=== PATIENT | female | born 1935 | race Caucasian/White ===

== ENCOUNTER 2018-06-22 10:32 | Outpatient (CLI) | payer MEDICARE, BC ==
[2018-06-22 11:31] LABS: Estimated GFR-MDRD - POC Greater than 90
[2018-06-22] MEDS ORDERED: ISOVUE-370 76%-LOCM 1 ML ONE (11:55)
== END 2018-06-22 10:33 | disposition home or self-care (01) ==
LOC: BICCT 10:32
PROVIDERS: ATTEND Nurse Practitioner Family
DX: K92.89 Other specified diseases of the digestive system (principal); K80.20 Calculus of gallbladder without cholecystitis without obstruction; K57.30 Diverticulosis of large intestine without perforation or abscess without bleeding
CPT/HCPCS: 74160; 82565

== ENCOUNTER 2018-08-07 11:12 | Outpatient (CLI) | payer MEDICARE, BC ==
--- NOTE | 2018-08-07 13:06 | RAD ---
CHEST TWO VIEWS: HISTORY: Recent pneumonia. COMPARISON: 03/07/2017 FINDINGS: Atherosclerosis of the aorta. Slight elongation of the descending aorta. Heart size is upper normal . Pulmonary vessels are slightly prominent. Costophrenic angles are clear. Lungs are hyperinflated . Chronic changes are noted. No consolidation or mass. No pneumothorax or osseous abnormalities. IMPRESSION: 1. Atherosclerosis. 2. Hyperinflation. 3. Mildly prominently pulmonary vessels. Correlate for volume overload. POS: [facility]
== END 2018-08-07 11:13 | disposition home or self-care (01) ==
LOC: SCSRAD 11:12
PROVIDERS: ATTEND Nurse Practitioner Family
DX: J18.9 Pneumonia, unspecified organism (principal); I70.0 Atherosclerosis of aorta; R91.8 Other nonspecific abnormal finding of lung field
CPT/HCPCS: 71046

== ENCOUNTER 2019-05-06 11:18 | Outpatient (CLI) | payer MEDICARE, BC ==
--- NOTE | 2019-05-06 12:02 | RAD ---
LUMBAR SPINE 2 VIEWS: Date: 05/06/19 HISTORY: M54.42, acute left-sided low back pain with left-sided sciatica. Left hip and leg pain. FINDINGS: Severe dextroscoliosis of the lumbar vertebral column. Extensive multilevel disc osteophytosis. Evide nce for generalized facet arthrosis. Diffuse bony demineralization. IMPRESSION: Severe dextroscoliosis. Bony demineralization. Severe spondylosis. POS: [facility]
== END 2019-05-06 11:19 | disposition home or self-care (01) ==
LOC: SCSRAD 11:18
PROVIDERS: ATTEND Nurse Practitioner Family
DX: M54.42 Lumbago with sciatica, left side (principal); M41.9 Scoliosis, unspecified; M47.816 Spondylosis without myelopathy or radiculopathy, lumbar region
CPT/HCPCS: 72100

== ENCOUNTER 2020-05-12 09:37 | Outpatient (CLI) | payer MEDICARE, BC ==
--- NOTE | 2020-05-12 10:22 | BD ---
BONE DENSITOMETRY USING DEXA: Date: 05/12/2020 HISTORY: Postmenopausal screening for osteoporosis. FINDINGS: Lumbar Spine: BMD (g/cm2) L1 1.202 T-Score: 1.9 Z-Score: 4.4 L2 1.024 T-Score: 0.0 Z-Score: 2.7 L3 1.130 T-Score: 0.4 Z-Score: 3.3 L4 1.078 T-Score: 0.2 Z-Score: 3.1 L1-L4 1.111 T-Score: 0.6 Z-Score: 3.4 Femoral Neck: 0.586 T-Score: -2.4 Z-Score: 0.1 Total Femur: 0.796 T-Score: -1.2 Z-Score: 1.0 IMPRESSION: Osteopenia. POS: [facility]
== END 2020-05-12 09:38 | disposition home or self-care (01) ==
LOC: BICMAMMO 09:37
PROVIDERS: ATTEND Internal Medicine
DX: M81.0 Age-related osteoporosis without current pathological fracture (principal); M85.859 Other specified disorders of bone density and structure, unspecified thigh
CPT/HCPCS: 77080

== ENCOUNTER 2020-06-05 12:13 | Emergency (ER) | payer MEDICARE, BC, OTHER ==
[~2020-06-05 12:13] MED LIST: Iopamidol-370 76% 500 ML 1 ML ONE
[2020-06-05 13:37] LABS: Hemoglobin 13.5 g/dL (12.0-16.0); Mean Corpuscular HGB CONC 32.6 g/dL (32.0-36.0); Mean Corpuscular Hemoglobin 31.3 pg (27.0-31.0); Mean Corpuscular Volume 96.1 fL (78.0-98.0); Mean Platelet Volume 8.3 fL (7.4-10.4); Platelet Count 147 thou/uL (130-400); RBC Distribution Width 12.5 % (11.5-14.5); White Blood Cell (WBC) Count 14.8 thou/uL (4.8-10.8)
[2020-06-05 14:15] LABS: Bacteria/HPF None Seen HPF (None Seen); Bilirubin Negative (Negative); Blood, Urine Negative (Negative); Clarity Clear (Clear); Glucose, Urine (Dipstick) Normal (Negative); Ketone, Urine Negative (Negative); Leukocyte Negative Leu/uL (Negative); Nitrite Negative (Negative); Protein, Urine (Dipstick) 30 mg/dL (Neg-Trace); RBC/HPF 0-3 HPF (0-3); Specific Gravity, Urine 1.024 (1.002-1.036); Squamous Epithelial 0-3 HPF (0-3)
[2020-06-05 14:33] LABS: Band 25 % (5-11); Lymphocytes 6 % (21-51); MDiff Complete? YES; Monocytes 2 % (0-10); Neutrophil 67 % (42-75); Platelet Morphology Comment Appears Adequate; RBC Morphology Normal
[2020-06-05 14:46] LABS: ALT (SGPT) 94 U/L (8-55); AST (SGOT) 86 U/L (5-34); Albumin 3.8 g/dL (3.4-4.8); Alkaline Phosphatase 95 U/L (40-110); Anion Gap 13 mmol/L (10-20); BUN (Urea Nitrogen) 18 mg/dL (9.8-20.1); Bilirubin, Total 0.7 mg/dL (0.2-1.2); Calc. Creatinine Clearance 0 mL/min (70-130); Calcium 8.7 mg/dL (7.8-10.44); Carbon Dioxide 27 mmol/L (23-31); Chloride 100 mmol/L (98-107); Estimated GFR-MDRD 70; Globulin 3.3 g/dL (2.4-3.5); Glucose 135 mg/dL (83-110); Lipase 14 U/L (8-78); Protein, Total 7.1 g/dL (6.0-8.3); Sodium 136 mmol/L (136-145)
--- NOTE | 2020-06-05 16:20 | CT ---
ABDOMEN AND PELVIC CT SCAN WITH IV CONTRAST: History: Left upper quadrant pain. Cough, sore throat, low grade fever. Comparison: Abdomen CT scan, 06-22-2018 FINDINGS: Minimal bilateral posterior pleural thickening and minimal pleural based parenchymal changes having m ore of a chronic appearance. There is evidence for minimal hepatosplenomegaly, both of which show an increase in size from the prior exam. Multiple gallstones within the gallbladder without wall thicken ing or pericholecystic fluid or fat stranding. No common duct or intrahepatic ductal dilatation. 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 There is no pancreatic ductal dilatation. This opacity appears to be cranial to t he level of the ampulla. The pancreas appears unremarkable. Right and left adrenal glands are unremar kable. No overt renal calculus or acute obstruction. No CT evidence for acute appendicitis. There is some scattered diverticulosis of the left and sigmoid colon, but without convincing evidence for a cute diverticulitis. No abscess, adenopathy, or abnormal fluid collection. IMPRESSION: 1. Multiple gallstones without CT evidence for acute cholecystitis. 2. Hepatosplenomegaly which has increased in size from the prior study. 3. No evidence for other significant acute process in the abdomen or pelvis. 4. Other findings as above. POS: [facility]
[2020-06-06 15:29] LABS: SARS-CoV-2 MS2 Positive; SARS-CoV-2 N Gene Negative; SARS-CoV-2 S Gene Negative; SARS-CoV-2 orf1ab Negative
== END 2020-06-05 16:59 | disposition home or self-care (01) ==
LOC: ERS 12:13
DX: J06.9 Acute upper respiratory infection, unspecified (principal); R10.9 Unspecified abdominal pain; Z20.828 Contact with and (suspected) exposure to other viral communicable diseases; G47.00 Insomnia, unspecified; I10 Essential (primary) hypertension
CPT/HCPCS: 74177; 80053; 83690; 85025; 96360; 99285; U0003; 36415; 81003; 81015; 87635; Q9967

== ENCOUNTER 2021-04-26 11:20 | Outpatient (CLI) | payer MEDICARE, BC ==
[2021-04-26 12:48] LABS: Bilirubin 1+ (Negative); Blood, Urine Negative (Negative); Clarity Clear (Clear); Glucose, Urine (Dipstick) Normal (Negative); Ketone, Urine 5 mg/dL (Negative); Leukocyte 100 (Negative); Nitrite Negative (Negative); Protein, Urine (Dipstick) 30 mg/dl (Neg-Trace); Specific Gravity, Urine 1.025 (1.002-1.036)
[2021-04-26 13:00] LABS: Bacteria/HPF Rare-Few HPF (None Seen); Calcium Oxalate Crystals 4+ HPF (None Seen); Mucous/LPF Rare LPF (<2+); RBC/HPF 0-3 HPF (0-3); Squamous Epithelial 0-3 HPF (0-3)
[2021-04-26 13:09] LABS: #Eosinphils 0.1 10x3/uL (0.0-0.5); #Monocytes 0.9 10x3/uL (0.0-1.1); #Neutrophils 7.4 10x3/uL (1.5-8.4); %Basophils 0.2 % (0.0-2.0); %Eosinophils 0.9 % (0.0-6.0); %Lymphocytes 16.4 % (18.0-47.0); %Monocytes 8.6 % (0.0-10.0); %Neutrophils 73.5 % (40.0-75.0); Anion Gap 12 mmol/L (10-20); BUN (Urea Nitrogen) 17 mg/dL (9.8-20.1); Calc. Creatinine Clearance 0 mL/min (70-130); Carbon Dioxide 27 mmol/L (23-31); Chloride 105 mmol/L (98-107); Glucose 105 mg/dL (83-110); Hemoglobin 13.2 g/dL (12.0-15.5); Mean Corpuscular Hemoglobin 30.7 pg (27.0-33.0); Mean Corpuscular Volume 95.8 fl (81.6-98.3); Mean Platelet Volume 10.2 fl (7.4-10.4); Platelet Count 197 10x3/uL (150-450); Potassium 4.2 mmol/L (3.5-5.1); RBC Distribution Width 13.7 % (11.5-14.5); Sodium 140 mmol/L (136-145)
[2021-04-26 20:50] LABS: SARS-CoV-2 NAA Rapid Test Not Detected (NotDetected)
== END 2021-04-26 11:21 | disposition home or self-care (01) ==
LOC: LABBT 11:20
PROVIDERS: ATTEND Orthopaedic Surgery Hand Surgery
DX: Z01.818 Encounter for other preprocedural examination (principal); G56.01 Carpal tunnel syndrome, right upper limb; G56.21 Lesion of ulnar nerve, right upper limb; M18.11 Unilateral primary osteoarthritis of first carpometacarpal joint, right hand; Z20.822 Contact with and (suspected) exposure to COVID-19
CPT/HCPCS: 80048; 81001; 85025; 93005; U0002; U0005; 93010

== ENCOUNTER 2021-05-01 09:26 | Day surgery (SDC) | payer MEDICARE, BC ==
[2021-04-27 15:43] VITALS: BMI 32.3
[2021-05-01] MEDS ORDERED: Betamet Acet/Betamet Na Ph 30 MG/5 ML VIAL ONE (11:53)
[2021-05-01] MEDS ORDERED: Bupivacaine PF 0.5% 30 ML VIAL ONE (11:53)
[2021-05-01] MEDS ORDERED: Bacitracin Zinc Ointment 30 gm TUBE ONE (11:53)
[2021-05-01] MEDS ORDERED: Fentanyl 100 MCG/2 ML VIAL ONE ×3 (12:32→16:42)
[2021-05-01] MEDS ORDERED: Morphine 4 MG/ML VIAL ONE (12:56)
[2021-05-01] MEDS ORDERED: Dexamethasone 20 MG/5 ML VIAL ONE (13:20)
[2021-05-01] MEDS ORDERED: Ondansetron PF 4 MG/2 ML Vial ONE (13:20)
[2021-05-01] MEDS ORDERED: Ketorolac Tromethamine 30 MG/ML VIAL ONE (13:20)
[2021-05-01] MEDS ORDERED: Bupivacaine HCl 0.5%/Epinephrine 1:200,000/PF 30 ml Vial ONE (13:20)
[2021-05-01] MEDS ORDERED: PROPOFOL 200 MG/20 ML VIAL ONE (13:20)
[2021-05-01] MEDS ORDERED: Lidocaine 1% PF 5 ML VIAL ONE (13:20)
[2021-05-01] MEDS ORDERED: HYDROmorphone 2 MG/ML VIAL ONE (16:42)
== END 2021-05-01 20:54 | disposition home or self-care (01) ==
LOC: SDC 09:26
PROVIDERS: ATTEND Orthopaedic Surgery Hand Surgery
PROC: 01N40ZZ Release Ulnar Nerve, Open Approach (ICD-10-PCS; principal; 2021-05-01)
PROC: 01N50ZZ Release Median Nerve, Open Approach (ICD-10-PCS; 2021-05-01)
PROC: 0LX50ZZ Transfer Right Lower Arm and Wrist Tendon, Open Approach (ICD-10-PCS; 2021-05-01)
PROC: 0RUS07Z Supplement Right Carpometacarpal Joint with Autologous Tissue Substitute, Open Approach (ICD-10-PCS; 2021-05-01)
PROC: 3E0T3BZ Introduction of Anesthetic Agent into Peripheral Nerves and Plexi, Percutaneous Approach (ICD-10-PCS; 2021-05-01)
DX: M18.0 Bilateral primary osteoarthritis of first carpometacarpal joints (principal); G56.21 Lesion of ulnar nerve, right upper limb; G56.01 Carpal tunnel syndrome, right upper limb; G89.18 Other acute postprocedural pain; I10 Essential (primary) hypertension; M19.90 Unspecified osteoarthritis, unspecified site; G89.29 Other chronic pain; M54.9 Dorsalgia, unspecified; E78.00 Pure hypercholesterolemia, unspecified; M06.9 Rheumatoid arthritis, unspecified; Z79.82 Long term (current) use of aspirin; Z79.899 Other long term (current) drug therapy
CPT/HCPCS: 25310 ×2; 25447; 64415; 64718; 64721; 73130; 76000; C1713; J0690; J0702; J1100; J1170; J1885; J2270; J2405; J2704; J3010; S0020

== ENCOUNTER 2022-09-02 10:37 | Outpatient (CLI) | payer MEDICARE, BC | END 2022-09-02 10:38 | disposition home or self-care (01) | LOC: BICRAD 10:37 | PROVIDERS: ATTEND Family Medicine | DX: M79.642 Pain in left hand (principal); M25.531 Pain in right wrist; M18.12 Unilateral primary osteoarthritis of first carpometacarpal joint, left hand; M11.232 Other chondrocalcinosis, left wrist; S52.501A Unspecified fracture of the lower end of right radius, initial encounter for closed fracture ==

== ENCOUNTER 2023-01-12 07:11 | Emergency (ER) | payer MEDICARE, BC ==
[2023-01-12] MEDS ORDERED: Ondansetron PF 4 MG/2 ML Vial ONE (07:29)
[2023-01-12] MEDS ORDERED: Morphine 4 MG/ML VIAL ONE (07:29)
[2023-01-12] MEDS ORDERED: Acetaminophen 325 MG TAB ONE (07:29)
[2023-01-12 07:58] LABS: #Eosinphils 0.1 thou/uL (0.0-0.7); #Lymphocytes 1.4 thou/uL (1.20-3.40); #Monocytes 0.8 thou/uL (0.11-0.59); #Neutrophils 9.3 thou/uL (1.40-6.50); %Basophils 0.1 % (0.0-1.0); %Eosinophils 0.6 % (0.0-10.0); %Lymphocytes 12.4 % (21.0-51.0); %Monocytes 6.6 % (0.0-10.0); %Neutrophils 80.4 % (42.0-75.0); Hemoglobin 13.5 g/dL (12.0-16.0); Mean Corpuscular HGB CONC 32.8 g/dL (32.0-36.0); Mean Corpuscular Hemoglobin 31.7 pg (27.0-31.0); Mean Corpuscular Volume 96.8 fl (78.0-98.0); Mean Platelet Volume 8.2 fL (7.4-10.4); Platelet Count 166 10x3/uL (130-400); RBC Distribution Width 12.7 % (11.5-14.5); Red Blood Cell (RBC) Count 4.24 mill/uL (4.20-5.40); White Blood Cell (WBC) Count 11.5 10x3/uL (4.8-10.8)
[2023-01-12 08:06] LABS: ALT (SGPT) 19 U/L (8-55); AST (SGOT) 25 U/L (5-34); Albumin 3.8 g/dL (3.4-4.8); Alkaline Phosphatase 51 U/L (40-110); Anion Gap 11 mmol/L (10-20); BUN (Urea Nitrogen) 13 mg/dL (9.8-20.1); Bilirubin, Total 0.6 mg/dL (0.2-1.2); Calc. Creatinine Clearance 0 mL/min (70-130); Calcium 8.9 mg/dL (7.8-10.44); Carbon Dioxide 27 mmol/L (23-31); Chloride 104 mmol/L (98-107); Estimated GFR 88; Globulin 3.3 g/dL (2.4-3.5); Glucose 117 mg/dL (83-110); Potassium 3.7 mmol/L (3.5-5.1); Protein, Total 7.1 g/dL (5.8-8.1); Sodium 138 mmol/L (136-145)
[2023-01-12] MEDS ORDERED: Iopamidol-370 76% 500 ML 1 ML ONE (08:38)
== END 2023-01-12 10:11 | disposition home or self-care (01) ==
LOC: ERS 07:11
DX: S33.5XXA Sprain of ligaments of lumbar spine, initial encounter (principal); K21.9 Gastro-esophageal reflux disease without esophagitis; D72.829 Elevated white blood cell count, unspecified; E78.5 Hyperlipidemia, unspecified; I10 Essential (primary) hypertension; W18.30XA Fall on same level, unspecified, initial encounter; Y92.009 Unspecified place in unspecified non-institutional (private) residence as the place of occurrence of the external cause; Z79.01 Long term (current) use of anticoagulants; Z79.899 Other long term (current) drug therapy
CPT/HCPCS: 36415; 74177; 80053; 85025; 94760; 96374; 96375; J2270; J2405; Q9967

== ENCOUNTER 2023-02-09 01:32 | Emergency (ER) | payer BC, MEDICARE ==
[2023-02-09 04:36] LABS: #Lymphocytes 1.8 thou/uL (1.20-3.40); #Monocytes 1.2 thou/uL (0.11-0.59); #Neutrophils 9.4 thou/uL (1.40-6.50); %Basophils 0.3 % (0.0-1.0); %Eosinophils 0.3 % (0.0-10.0); %Lymphocytes 14.8 % (21.0-51.0); %Monocytes 9.5 % (0.0-10.0); %Neutrophils 75.2 % (42.0-75.0); Hemoglobin 12.3 g/dL (12.0-16.0); Mean Corpuscular HGB CONC 32.9 g/dL (32.0-36.0); Mean Corpuscular Hemoglobin 31.1 pg (27.0-31.0); Mean Corpuscular Volume 94.4 fl (78.0-98.0); Platelet Count 187 10x3/uL (130-400); RBC Distribution Width 12.9 % (11.5-14.5); Red Blood Cell (RBC) Count 3.94 mill/uL (4.20-5.40); White Blood Cell (WBC) Count 12.4 10x3/uL (4.8-10.8)
[2023-02-09 04:51] LABS: Bilirubin Negative (Negative); Blood, Urine Trace (Negative); Clarity Clear (Clear); Glucose, Urine (Dipstick) Normal (Negative); Ketone, Urine Trace mg/dL (Negative); Leukocyte 500 Leu/uL (Negative); Nitrite 2+ (Negative); Protein, Urine (Dipstick) 10 mg/dL (Neg-Trace); Specific Gravity, Urine 1.048 (1.002-1.036); Squamous Epithelial 0-3 HPF (0-3); Urobilinogen Normal mg/dL (Less than 2); WBC/HPF Greater than 50 HPF (0-3); pH, Urine 6.5 (5.0-9.0)
[2023-02-09 04:55] LABS: Bacteria/HPF 1+ HPF (None Seen)
[2023-02-09 04:58] LABS: ALT (SGPT) 22 U/L (8-55); AST (SGOT) 18 U/L (5-34); Alkaline Phosphatase 65 U/L (40-110); Anion Gap 11 mmol/L (10-20); BUN (Urea Nitrogen) 17 mg/dL (9.8-20.1); Bilirubin, Total 0.4 mg/dL (0.2-1.2); Calc. Creatinine Clearance 0 mL/min (70-130); Carbon Dioxide 29 mmol/L (23-31); Chloride 100 mmol/L (98-107); Estimated GFR 87; Globulin 3.4 g/dL (2.4-3.5); Glucose 119 mg/dL (83-110); Lipase 17 U/L (8-78); Potassium 3.2 mmol/L (3.5-5.1); Protein, Total 6.4 g/dL (5.8-8.1); Sodium 137 mmol/L (136-145)
== END 2023-02-09 09:45 ==
LOC: ERS 01:32
DX: N39.0 Urinary tract infection, site not specified (principal); D72.829 Elevated white blood cell count, unspecified; K21.9 Gastro-esophageal reflux disease without esophagitis; E78.5 Hyperlipidemia, unspecified; I10 Essential (primary) hypertension; Z79.01 Long term (current) use of anticoagulants; Z79.899 Other long term (current) drug therapy
CPT/HCPCS: 36415; 74177; 80053; 81003; 81015; 83690; 85025; 87077; 87086; 87186; 93005

== ENCOUNTER 2023-02-18 17:02 | Emergency (ER) | payer OTHER, MEDICARE, BC ==
[2023-02-18 17:39] LABS: #Lymphocytes 2.1 thou/uL (1.20-3.40); #Monocytes 1.8 thou/uL (0.11-0.59); #Neutrophils 13.9 thou/uL (1.40-6.50); %Basophils 0.1 % (0.0-1.0); %Eosinophils 0.1 % (0.0-10.0); %Lymphocytes 11.8 % (21.0-51.0); %Neutrophils 77.9 % (42.0-75.0); Hemoglobin 12.5 g/dL (12.0-16.0); Mean Corpuscular HGB CONC 32.8 g/dL (32.0-36.0); Mean Corpuscular Hemoglobin 30.7 pg (27.0-31.0); Mean Corpuscular Volume 93.6 fl (78.0-98.0); Mean Platelet Volume 8.1 fL (7.4-10.4); Platelet Count 255 10x3/uL (130-400); RBC Distribution Width 13.1 % (11.5-14.5); Red Blood Cell (RBC) Count 4.09 mill/uL (4.20-5.40); White Blood Cell (WBC) Count 17.8 10x3/uL (4.8-10.8)
[2023-02-18 18:03] LABS: ALT (SGPT) 29 U/L (8-55); AST (SGOT) 30 U/L (5-34); Albumin 3.1 g/dL (3.4-4.8); Alkaline Phosphatase 70 U/L (40-110); Anion Gap 12 mmol/L (10-20); BUN (Urea Nitrogen) 14 mg/dL (9.8-20.1); Bilirubin, Total 0.5 mg/dL (0.2-1.2); Calc. Creatinine Clearance 0 mL/min (70-130); Calcium 9.1 mg/dL (7.8-10.44); Carbon Dioxide 27 mmol/L (23-31); Chloride 100 mmol/L (98-107); Estimated GFR 66; Globulin 3.9 g/dL (2.4-3.5); Glucose 125 mg/dL (83-110); Potassium 3.3 mmol/L (3.5-5.1); Sodium 136 mmol/L (136-145)
[2023-02-18] MEDS ORDERED: cefTRIAXone (ROCEPHIN) 1 GM VIAL ONE (19:00)
[2023-02-18 23:47] LABS: Bacteria/HPF None Seen HPF (None Seen); Bilirubin Negative (Negative); Blood, Urine 2+ (Negative); Clarity Clear (Clear); Glucose, Urine (Dipstick) Normal (Negative); Ketone, Urine Trace mg/dL (Negative); Leukocyte Negative Leu/uL (Negative); Nitrite Negative (Negative); Protein, Urine (Dipstick) 50 mg/dL (Neg-Trace); RBC/HPF Greater than 50 HPF (0-3); Specific Gravity, Urine 1.021 (1.002-1.036); Squamous Epithelial 0-3 HPF (0-3); Urobilinogen Normal mg/dL (Less than 2)
== END 2023-02-19 04:41 ==
LOC: ERS 17:02
DX: S22.081A Stable burst fracture of T11-T12 vertebra, initial encounter for closed fracture (principal); N39.0 Urinary tract infection, site not specified; I10 Essential (primary) hypertension; E78.5 Hyperlipidemia, unspecified; K21.9 Gastro-esophageal reflux disease without esophagitis; D72.829 Elevated white blood cell count, unspecified; W01.198A Fall on same level from slipping, tripping and stumbling with subsequent striking against other object, initial encounter; Z79.01 Long term (current) use of anticoagulants; Z79.899 Other long term (current) drug therapy
CPT/HCPCS: 36415; 70450; 71045; 72125; 72128; 72131; 80053; 81003; 81015; 84484; 85025; 87086; 93005; 96365; J0696

== ENCOUNTER 2023-02-22 11:28 | Inpatient (IN) | payer MEDICARE, BC ==
[2023-02-22] MEDS ORDERED: Diltiazem 125 MG/25 ML SDV ONE ×2 (11:58→21:17)
[2023-02-22 11:59] LABS: #Eosinphils 0.1 thou/uL (0.0-0.7); #Lymphocytes 1.9 thou/uL (1.20-3.40); #Monocytes 1.3 thou/uL (0.11-0.59); #Neutrophils 11.5 thou/uL (1.40-6.50); %Basophils 0.1 % (0.0-1.0); %Eosinophils 0.5 % (0.0-10.0); %Lymphocytes 13.1 % (21.0-51.0); %Monocytes 8.5 % (0.0-10.0); %Neutrophils 77.8 % (42.0-75.0); Hemoglobin 13.2 g/dL (12.0-16.0); Mean Corpuscular HGB CONC 32.2 g/dL (32.0-36.0); Mean Corpuscular Hemoglobin 30.3 pg (27.0-31.0); Mean Corpuscular Volume 93.9 fl (78.0-98.0); Mean Platelet Volume 8.2 fL (7.4-10.4); Platelet Count 326 10x3/uL (130-400); RBC Distribution Width 13.5 % (11.5-14.5); Red Blood Cell (RBC) Count 4.37 mill/uL (4.20-5.40); White Blood Cell (WBC) Count 14.8 10x3/uL (4.8-10.8)
[2023-02-22 12:17] LABS: ALT (SGPT) 42 U/L (8-55); AST (SGOT) 53 U/L (5-34); Albumin 3.4 g/dL (3.4-4.8); Alkaline Phosphatase 73 U/L (40-110); Anion Gap 14 mmol/L (10-20); BUN (Urea Nitrogen) 22 mg/dL (9.8-20.1); Bilirubin, Total 0.3 mg/dL (0.2-1.2); Calc. Creatinine Clearance 0 mL/min (70-130); Calcium 9.3 mg/dL (7.8-10.44); Carbon Dioxide 25 mmol/L (23-31); Chloride 101 mmol/L (98-107); Estimated GFR 80; Globulin 3.9 g/dL (2.4-3.5); Glucose 113 mg/dL (83-110); Potassium 3.9 mmol/L (3.5-5.1); Protein, Total 7.3 g/dL (5.8-8.1); Sodium 136 mmol/L (136-145)
[2023-02-22] MEDS ORDERED: Digoxin 0.25 MG TAB ONE ×2 (15:05→15:06)
[2023-02-22] MEDS ORDERED: Digoxin 0.5 MG/2 ML AMP ONE (15:08)
[2023-02-22] MEDS ORDERED: Acetaminophen 325 MG TAB PO PRN (16:59)
[2023-02-22] MEDS ORDERED: Metoclopramide HCl 10 MG/2 ML VIAL IVP PRN (17:04)
[2023-02-22 17:26] VITALS: BMI 32.2
[2023-02-22] MEDS ORDERED: cefTRIAXone (ROCEPHIN) 2 GM VIAL ONE (17:53)
[2023-02-22] MEDS ORDERED: cefTRIAXone (ROCEPHIN) 1 GM VIAL ONE (17:54)
[2023-02-22] MEDS: cefTRIAXone\\ROCEPHIN 1 GM in Sodium Chloride 0.9% 100 ML IVPB SCH (18:12)
[2023-02-22] MEDS ORDERED: Digoxin 0.5 MG/2 ML AMP SLOW IVP SCH (22:00)
[2023-02-22] MEDS: Atorvastatin Calcium 40 MG TAB PO SCH (22:05)
[2023-02-22] MEDS: Sertraline 100 MG TAB PO SCH (22:05)
[2023-02-22] MEDS: Apixaban 5 MG TAB PO SCH (22:05)
[2023-02-23] MEDS: Diltiazem 125 MG in Sodium Chloride 0.9% 100 ML IVPB SCH ×2 (03:49→14:22)
[2023-02-23 05:09] LABS: #Eosinphils 0.1 thou/uL (0.0-0.7); #Neutrophils 8.4 thou/uL (1.40-6.50); %Eosinophils 0.6 % (0.0-10.0); %Lymphocytes 17.5 % (21.0-51.0); %Monocytes 8.8 % (0.0-10.0); Hemoglobin 11.8 g/dL (12.0-16.0); Mean Corpuscular HGB CONC 32.9 g/dL (32.0-36.0); Mean Corpuscular Hemoglobin 31.2 pg (27.0-31.0); Mean Corpuscular Volume 94.9 fl (78.0-98.0); Mean Platelet Volume 8.1 fL (7.4-10.4); Platelet Count 261 10x3/uL (130-400); RBC Distribution Width 13.4 % (11.5-14.5); Red Blood Cell (RBC) Count 3.78 mill/uL (4.20-5.40); White Blood Cell (WBC) Count 11.5 10x3/uL (4.8-10.8)
[2023-02-23 05:28] LABS: Anion Gap 12 mmol/L (10-20); BUN (Urea Nitrogen) 18 mg/dL (9.8-20.1); Calc. Creatinine Clearance 72 mL/min (70-130); Calcium 8.4 mg/dL (7.8-10.44); Carbon Dioxide 23 mmol/L (23-31); Chloride 103 mmol/L (98-107); Estimated GFR 85; Glucose 106 mg/dL (83-110); Potassium 3.4 mmol/L (3.5-5.1); Sodium 135 mmol/L (136-145)
[2023-02-23] MEDS ORDERED: Potassium Chloride 20 MEQ TAB PO SCH (07:15)
[2023-02-23 08:26] LABS: Magnesium 1.7 mg/dL (1.6-2.6)
[2023-02-23] MEDS: Sertraline 100 MG TAB PO SCH ×2 (08:40→20:37)
[2023-02-23] MEDS: Apixaban 5 MG TAB PO SCH ×2 (08:40→20:37)
[2023-02-23] MEDS: Bupropion 150 MG XL TAB PO SCH (08:40)
[2023-02-23] MEDS ORDERED: Amiodarone 450 MG, Admixture Fee 1 EACH in Dextrose 5% in Water 250 ML IVPB SCH (16:00)
[2023-02-23] MEDS: cefTRIAXone\\ROCEPHIN 1 GM in Sodium Chloride 0.9% 100 ML IVPB SCH (17:22)
[2023-02-23] MEDS: traMADol HCl 50 MG TAB PO PRN (17:22)
[2023-02-23] MEDS: Amiodarone 450 MG in Dextrose 5% in Water 250 ML IVPB SCH (18:06)
[2023-02-23] MEDS: Atorvastatin Calcium 40 MG TAB PO SCH (20:37)
[2023-02-23] MEDS: Metoprolol Tartrate 5 MG/5 ML VIAL IVP PRN ×3 (21:02→21:33)
[2023-02-23] MEDS ORDERED: Magnesium 2 GM/50 ML(in water) 2 GM in Premix Bag 1 BAG IVPB SCH (22:15)
[2023-02-23] MEDS ORDERED: Diltiazem HCl SR 60 mg Capsule PO SCH (22:45)
[2023-02-24] MEDS: Amiodarone 450 MG in Dextrose 5% in Water 250 ML IVPB SCH ×2 (02:47→17:43)
[2023-02-24 04:45] LABS: #Eosinphils 0.1 thou/uL (0.0-0.7); #Lymphocytes 2.1 thou/uL (1.20-3.40); #Monocytes 1.3 thou/uL (0.11-0.59); #Neutrophils 8.2 thou/uL (1.40-6.50); %Basophils 0.3 % (0.0-1.0); %Eosinophils 0.5 % (0.0-10.0); %Lymphocytes 17.9 % (21.0-51.0); %Monocytes 10.9 % (0.0-10.0); %Neutrophils 70.5 % (42.0-75.0); Hemoglobin 12.1 g/dL (12.0-16.0); Mean Corpuscular HGB CONC 32.2 g/dL (32.0-36.0); Mean Corpuscular Hemoglobin 30.7 pg (27.0-31.0); Mean Corpuscular Volume 95.4 fl (78.0-98.0); Mean Platelet Volume 7.9 fL (7.4-10.4); Platelet Count 273 10x3/uL (130-400); RBC Distribution Width 13.8 % (11.5-14.5); Red Blood Cell (RBC) Count 3.95 mill/uL (4.20-5.40); White Blood Cell (WBC) Count 11.7 10x3/uL (4.8-10.8)
[2023-02-24 05:05] LABS: Anion Gap 13 mmol/L (10-20); BUN (Urea Nitrogen) 16 mg/dL (9.8-20.1); Calc. Creatinine Clearance 75 mL/min (70-130); Calcium 8.5 mg/dL (7.8-10.44); Carbon Dioxide 21 mmol/L (23-31); Chloride 105 mmol/L (98-107); Estimated GFR 86; Glucose 121 mg/dL (83-110); Magnesium 2.1 mg/dL (1.6-2.6); Sodium 135 mmol/L (136-145)
[2023-02-24] MEDS ORDERED: Diltiazem 125 MG in Sodium Chloride 0.9% 100 ML IVPB SCH (07:30)
[2023-02-24] MEDS: Sertraline 100 MG TAB PO SCH ×2 (08:31→21:31)
[2023-02-24] MEDS: Bupropion 150 MG XL TAB PO SCH (08:31)
[2023-02-24] MEDS: Apixaban 5 MG TAB PO SCH ×2 (08:32→21:30)
[2023-02-24] MEDS ORDERED: Diltiazem HCl SR 60 mg Capsule PO SCH (09:00)
[2023-02-24] MEDS ORDERED: Meclizine HCl 12.5 MG TAB PO PRN (09:24)
[2023-02-24] MEDS ORDERED: Furosemide 40 MG/4 ML VIAL SLOW IVP SCH (15:30)
[2023-02-24] MEDS: cefTRIAXone\\ROCEPHIN 1 GM in Sodium Chloride 0.9% 100 ML IVPB SCH (17:41)
[2023-02-24] MEDS: Diltiazem 125 MG in Sodium Chloride 0.9% 100 ML IVPB SCH (17:42)
[2023-02-24] MEDS: Sacubitril 24MG/Valsartan 26 MG TAB PO SCH (21:30)
[2023-02-24] MEDS: Atorvastatin Calcium 40 MG TAB PO SCH (21:30)
[2023-02-25] MEDS: Diltiazem 125 MG in Sodium Chloride 0.9% 100 ML IVPB SCH ×3 (02:31→21:10)
[2023-02-25 04:54] LABS: #Eosinphils 0.1 thou/uL (0.0-0.7); #Lymphocytes 2.3 thou/uL (1.20-3.40); #Monocytes 1.7 thou/uL (0.11-0.59); #Neutrophils 12.5 thou/uL (1.40-6.50); %Basophils 0.1 % (0.0-1.0); %Eosinophils 0.5 % (0.0-10.0); %Lymphocytes 13.7 % (21.0-51.0); %Neutrophils 75.7 % (42.0-75.0); Hemoglobin 12.7 g/dL (12.0-16.0); Mean Corpuscular HGB CONC 32.4 g/dL (32.0-36.0); Mean Corpuscular Hemoglobin 31.3 pg (27.0-31.0); Mean Corpuscular Volume 96.7 fl (78.0-98.0); Mean Platelet Volume 9.4 fL (7.4-10.4); Platelet Count 224 10x3/uL (130-400); RBC Distribution Width 14.4 % (11.5-14.5); Red Blood Cell (RBC) Count 4.05 mill/uL (4.20-5.40); White Blood Cell (WBC) Count 16.6 10x3/uL (4.8-10.8)
[2023-02-25 05:06] LABS: Anion Gap 13 mmol/L (10-20); BUN (Urea Nitrogen) 11 mg/dL (9.8-20.1); Calc. Creatinine Clearance 85 mL/min (70-130); Calcium 8.5 mg/dL (7.8-10.44); Carbon Dioxide 21 mmol/L (23-31); Chloride 102 mmol/L (98-107); Estimated GFR 89; Glucose 131 mg/dL (83-110); Potassium 3.9 mmol/L (3.5-5.1); Sodium 132 mmol/L (136-145)
[2023-02-25] MEDS: Sacubitril 24MG/Valsartan 26 MG TAB PO SCH ×2 (09:50→21:08)
[2023-02-25] MEDS: Bupropion 150 MG XL TAB PO SCH (09:52)
[2023-02-25] MEDS: Apixaban 5 MG TAB PO SCH ×2 (09:52→21:08)
[2023-02-25] MEDS: Sertraline 100 MG TAB PO SCH ×2 (09:52→21:08)
[2023-02-25] MEDS: Amiodarone 450 MG in Dextrose 5% in Water 250 ML IVPB SCH (12:18)
[2023-02-25] MEDS: traMADol HCl 50 MG TAB PO PRN (15:35)
[2023-02-25] MEDS ORDERED: Digoxin 0.5 MG/2 ML AMP SLOW IVP SCH (17:45)
[2023-02-25] MEDS ORDERED: Furosemide 20 MG/2 ML VIAL SLOW IVP SCH (18:00)
[2023-02-25] MEDS: Atorvastatin Calcium 40 MG TAB PO SCH (21:09)
[2023-02-26] MEDS: Amiodarone 450 MG in Dextrose 5% in Water 250 ML IVPB SCH ×2 (04:43→21:11)
[2023-02-26 05:29] LABS: Bacteria/HPF None Seen HPF (None Seen); Bilirubin Negative (Negative); Blood, Urine Negative (Negative); CAUTI Indications for Culture Fever or rigors; Clarity Clear (Clear); Glucose, Urine (Dipstick) Normal (Negative); Ketone, Urine Negative (Negative); Leukocyte 500 Leu/uL (Negative); Nitrite Negative (Negative); Protein, Urine (Dipstick) 10 mg/dL (Neg-Trace); RBC/HPF 0-3 HPF (0-3); Specific Gravity, Urine 1.017 (1.002-1.036); Urobilinogen Normal mg/dL (Less than 2)
[2023-02-26 05:31] LABS: Urine Culture Reflex No No
[2023-02-26] MEDS: Diltiazem 125 MG in Sodium Chloride 0.9% 100 ML IVPB SCH (08:30)
[2023-02-26] MEDS ORDERED: Digoxin 0.125 MG TAB PO SCH (09:00)
[2023-02-26] MEDS: Apixaban 5 MG TAB PO SCH ×2 (10:30→20:56)
[2023-02-26] MEDS: Furosemide 40 MG/4 ML VIAL SLOW IVP SCH (10:31)
[2023-02-26] MEDS: Bupropion 150 MG XL TAB PO SCH (10:31)
[2023-02-26] MEDS: Sertraline 100 MG TAB PO SCH ×2 (10:31→20:56)
[2023-02-26] MEDS: Sacubitril 24MG/Valsartan 26 MG TAB PO SCH ×2 (10:43→20:56)
[2023-02-26] MEDS: Amiodarone 200 MG TAB PO SCH (20:57)
[2023-02-26] MEDS: Atorvastatin Calcium 40 MG TAB PO SCH (20:57)
[2023-02-27] MEDS: traMADol HCl 50 MG TAB PO PRN (04:30)
[2023-02-27] MEDS: Furosemide 40 MG/4 ML VIAL SLOW IVP SCH (09:33)
[2023-02-27] MEDS: Bupropion 150 MG XL TAB PO SCH (09:33)
[2023-02-27] MEDS: Sacubitril 24MG/Valsartan 26 MG TAB PO SCH ×2 (09:33→20:27)
[2023-02-27] MEDS: Sertraline 100 MG TAB PO SCH ×2 (09:33→20:27)
[2023-02-27] MEDS: Apixaban 5 MG TAB PO SCH ×2 (09:33→20:27)
[2023-02-27] MEDS: Amiodarone 200 MG TAB PO SCH ×2 (09:34→20:26)
[2023-02-27 17:18] LABS: #Lymphocytes 1.8 thou/uL (1.20-3.40); #Monocytes 1.5 thou/uL (0.11-0.59); #Neutrophils 11.5 thou/uL (1.40-6.50); %Basophils 0.2 % (0.0-1.0); %Eosinophils 0.2 % (0.0-10.0); %Lymphocytes 12.4 % (21.0-51.0); %Monocytes 9.9 % (0.0-10.0); %Neutrophils 77.2 % (42.0-75.0); Hemoglobin 12.5 g/dL (12.0-16.0); Mean Corpuscular HGB CONC 32.8 g/dL (32.0-36.0); Mean Corpuscular Hemoglobin 31.3 pg (27.0-31.0); Mean Corpuscular Volume 95.6 fl (78.0-98.0); Mean Platelet Volume 7.7 fL (7.4-10.4); Platelet Count 262 10x3/uL (130-400); RBC Distribution Width 14.2 % (11.5-14.5); Red Blood Cell (RBC) Count 3.98 mill/uL (4.20-5.40); White Blood Cell (WBC) Count 14.9 10x3/uL (4.8-10.8)
[2023-02-27] MEDS: Atorvastatin Calcium 40 MG TAB PO SCH (20:27)
[2023-02-28 04:33] LABS: #Lymphocytes 1.9 thou/uL (1.20-3.40); #Monocytes 1.4 thou/uL (0.11-0.59); #Neutrophils 12.2 thou/uL (1.40-6.50); %Basophils 0.2 % (0.0-1.0); %Eosinophils 0.3 % (0.0-10.0); %Lymphocytes 12.3 % (21.0-51.0); %Monocytes 8.8 % (0.0-10.0); %Neutrophils 78.3 % (42.0-75.0); Hemoglobin 12.7 g/dL (12.0-16.0); Mean Corpuscular HGB CONC 32.3 g/dL (32.0-36.0); Mean Corpuscular Hemoglobin 30.8 pg (27.0-31.0); Mean Corpuscular Volume 95.4 fl (78.0-98.0); Mean Platelet Volume 8.1 fL (7.4-10.4); Platelet Count 256 10x3/uL (130-400); RBC Distribution Width 14.4 % (11.5-14.5); Red Blood Cell (RBC) Count 4.13 mill/uL (4.20-5.40); White Blood Cell (WBC) Count 15.6 10x3/uL (4.8-10.8)
[2023-02-28 04:58] LABS: Anion Gap 12 mmol/L (10-20); BUN (Urea Nitrogen) 18 mg/dL (9.8-20.1); Calc. Creatinine Clearance 85 mL/min (70-130); Calcium 8.8 mg/dL (7.8-10.44); Carbon Dioxide 23 mmol/L (23-31); Chloride 100 mmol/L (98-107); Estimated GFR 89; Glucose 113 mg/dL (83-110); Potassium 3.1 mmol/L (3.5-5.1); Sodium 132 mmol/L (136-145)
[2023-02-28] MEDS: Apixaban 5 MG TAB PO SCH ×2 (08:34→21:20)
[2023-02-28] MEDS: Furosemide 40 MG/4 ML VIAL SLOW IVP SCH (08:34)
[2023-02-28] MEDS: Amiodarone 200 MG TAB PO SCH ×2 (08:34→21:19)
[2023-02-28] MEDS: Bupropion 150 MG XL TAB PO SCH (08:34)
[2023-02-28] MEDS: Sacubitril 24MG/Valsartan 26 MG TAB PO SCH ×2 (08:34→21:19)
[2023-02-28] MEDS: Sertraline 100 MG TAB PO SCH ×2 (08:35→21:19)
[2023-02-28] MEDS ORDERED: VANCOMYCIN IVPB PRN (10:22)
[2023-02-28] MEDS: Potassium Chloride 20 MEQ TAB PO SCH ×2 (11:41→14:16)
[2023-02-28] MEDS: cefTRIAXone\\ROCEPHIN 2 GM in Sodium Chloride 0.9% 100 ML IVPB SCH (11:41)
[2023-02-28] MEDS: Vancomycin HCl 750 MG in Sodium Chloride 0.9% 250 ML 250 ML IVPB SCH (11:41)
[2023-02-28] MEDS ORDERED: Vancomycin HCl 1 GM in Sodium Chloride 0.9% 250 ML 300 ML IVPB SCH (21:00)
[2023-02-28] MEDS: Atorvastatin Calcium 40 MG TAB PO SCH (21:20)
[2023-03-01] MEDS: Vancomycin HCl 750 MG in Sodium Chloride 0.9% 250 ML 250 ML IVPB SCH ×2 (01:11→14:41)
[2023-03-01] MEDS: Sacubitril 24MG/Valsartan 26 MG TAB PO SCH ×2 (09:04→21:29)
[2023-03-01] MEDS: Amiodarone 200 MG TAB PO SCH ×2 (09:04→21:29)
[2023-03-01] MEDS: Sertraline 100 MG TAB PO SCH ×2 (09:05→21:30)
[2023-03-01] MEDS: Apixaban 5 MG TAB PO SCH ×2 (09:09→21:29)
[2023-03-01] MEDS: Furosemide 40 MG/4 ML VIAL SLOW IVP SCH (09:09)
[2023-03-01] MEDS: Bupropion 150 MG XL TAB PO SCH (09:09)
[2023-03-01] MEDS ORDERED: Potassium Chloride 20 MEQ TAB PO SCH (10:00)
[2023-03-01] MEDS ORDERED: Electrolyte Replacement Protocol 1 EACH FS SCH (10:00)
[2023-03-01] MEDS: cefTRIAXone\\ROCEPHIN 2 GM in Sodium Chloride 0.9% 100 ML IVPB SCH (11:04)
[2023-03-01] MEDS: Atorvastatin Calcium 40 MG TAB PO SCH (21:29)
[2023-03-02] MEDS: Vancomycin HCl 750 MG in Sodium Chloride 0.9% 250 ML 250 ML IVPB SCH (00:42)
[2023-03-02 05:10] LABS: #Lymphocytes 1.9 thou/uL (1.20-3.40); #Monocytes 1.2 thou/uL (0.11-0.59); #Neutrophils 8.2 thou/uL (1.40-6.50); %Basophils 0.1 % (0.0-1.0); %Eosinophils 0.3 % (0.0-10.0); %Lymphocytes 16.6 % (21.0-51.0); %Monocytes 10.4 % (0.0-10.0); %Neutrophils 72.6 % (42.0-75.0); Hemoglobin 12.3 g/dL (12.0-16.0); Mean Corpuscular HGB CONC 31.4 g/dL (32.0-36.0); Mean Corpuscular Volume 95.7 fl (78.0-98.0); Mean Platelet Volume 7.7 fL (7.4-10.4); Platelet Count 258 10x3/uL (130-400); Red Blood Cell (RBC) Count 4.11 mill/uL (4.20-5.40); White Blood Cell (WBC) Count 11.3 10x3/uL (4.8-10.8)
[2023-03-02 05:43] LABS: Anion Gap 11 mmol/L (10-20); BUN (Urea Nitrogen) 16 mg/dL (9.8-20.1); Calc. Creatinine Clearance 84 mL/min (70-130); Calcium 8.9 mg/dL (7.8-10.44); Carbon Dioxide 28 mmol/L (23-31); Chloride 102 mmol/L (98-107); Estimated GFR 88; Glucose 105 mg/dL (83-110); Potassium 3.2 mmol/L (3.5-5.1); Sodium 138 mmol/L (136-145)
[2023-03-02] MEDS ORDERED: Potassium Chloride 20 MEQ TAB PO SCH (08:00)
[2023-03-02] MEDS: Furosemide 40 MG/4 ML VIAL SLOW IVP SCH (08:10)
[2023-03-02] MEDS: Bupropion 150 MG XL TAB PO SCH (08:10)
[2023-03-02] MEDS: Apixaban 5 MG TAB PO SCH ×2 (08:11→21:17)
[2023-03-02] MEDS: Amiodarone 200 MG TAB PO SCH ×2 (08:11→21:17)
[2023-03-02] MEDS: Sertraline 100 MG TAB PO SCH ×2 (08:11→21:17)
[2023-03-02] MEDS: Sacubitril 24MG/Valsartan 26 MG TAB PO SCH ×2 (08:11→21:17)
[2023-03-02] MEDS: CEFAZOLIN 1 GM in Sodium Chloride 0.9% 100 ML IVPB SCH ×2 (15:25→21:18)
[2023-03-02] MEDS ORDERED: hydrALAZINE 20 MG/ML VIAL SLOW IVP PRN (17:19)
[2023-03-02] MEDS: Atorvastatin Calcium 40 MG TAB PO SCH (21:17)
[2023-03-02] MEDS: traMADol HCl 50 MG TAB PO PRN (21:38)
[2023-03-02 22:19] LABS: Vancomycin, Trough 5.2 ug/mL
[2023-03-03] MEDS: CEFAZOLIN 1 GM in Sodium Chloride 0.9% 100 ML IVPB SCH ×2 (06:02→13:15)
[2023-03-03] MEDS: Sacubitril 24MG/Valsartan 26 MG TAB PO SCH (09:46)
[2023-03-03] MEDS: Apixaban 5 MG TAB PO SCH (09:46)
[2023-03-03] MEDS: Sertraline 100 MG TAB PO SCH (09:46)
[2023-03-03] MEDS: Amiodarone 200 MG TAB PO SCH (09:46)
[2023-03-03] MEDS: Furosemide 40 MG/4 ML VIAL SLOW IVP SCH (09:46)
[2023-03-03] MEDS: Bupropion 150 MG XL TAB PO SCH (09:46)
[2023-03-03 12:00] VITALS: BP 139/78; TEMP 98.1
== END 2023-03-03 14:05 | DRG 309 ==
LOC: ERS 11:28 → ERHOLD 14:56 → 2NO 23:51
PROVIDERS: ADMIT Family Medicine; ATTEND Family Medicine
DX: I48.0 Paroxysmal atrial fibrillation (principal); E87.1 Hypo-osmolality and hyponatremia; N39.0 Urinary tract infection, site not specified; L03.114 Cellulitis of left upper limb; I42.0 Dilated cardiomyopathy; I47.1 Supraventricular tachycardia; K21.9 Gastro-esophageal reflux disease without esophagitis; E78.5 Hyperlipidemia, unspecified; I10 Essential (primary) hypertension; F32.A Depression, unspecified; F41.9 Anxiety disorder, unspecified; M79.7 Fibromyalgia; G47.00 Insomnia, unspecified; K59.00 Constipation, unspecified; E87.6 Hypokalemia; I80.9 Phlebitis and thrombophlebitis of unspecified site; R42 Dizziness and giddiness; Z90.710 Acquired absence of both cervix and uterus; Z98.890 Other specified postprocedural states
CPT/HCPCS: 36415; 71045; 76881; 80048; 80053; 80202; 81001; 82553; 83735; 83880; 84145; 84484; 85025; 87081; 93005; 93010; 93306; 96374; 96375; 96376; J0282; J0360; J0690; J0696; J1160; J1940; J3370; J3475; J3490; J7050; J7070

== ENCOUNTER 2023-04-04 11:50 | Emergency (ER) | payer OTHER, MEDICARE, BC | END 2023-04-04 13:34 | disposition home or self-care (01) | LOC: ERS 11:50 | DX: S00.03XA Contusion of scalp, initial encounter (principal); K21.9 Gastro-esophageal reflux disease without esophagitis; E78.5 Hyperlipidemia, unspecified; I10 Essential (primary) hypertension; W01.0XXA Fall on same level from slipping, tripping and stumbling without subsequent striking against object, initial encounter; Z79.01 Long term (current) use of anticoagulants; Z79.899 Other long term (current) drug therapy | CPT/HCPCS: 70450; 93005 ==

== ENCOUNTER 2023-05-14 10:54 | Outpatient (CLI) | payer MEDICARE, BC | END 2023-05-14 10:55 | disposition home or self-care (01) | LOC: BICRAD 10:54 | PROVIDERS: ATTEND Surgery | DX: S22.001D Stable burst fracture of unspecified thoracic vertebra, subsequent encounter for fracture with routine healing (principal) | CPT/HCPCS: 72070 ==